=== PATIENT | female | born 1975 | race Caucasian/White ===

== ENCOUNTER 2018-06-25 08:03 | Day surgery (SDC) | payer OTHER ==
[2018-06-25] MEDS ORDERED: DIAZEPAM 5 MG TAB ONE (08:21)
[2018-06-25] MEDS ORDERED: BUPIVACAINE HCL 0.25% MPF 30 ML SOL INFIL ONE (08:32)
[2018-06-25] MEDS ORDERED: TRIAMCINOLONE ACETONIDE 40 MG/ML SUS ONE (08:32)
[2018-06-25] MEDS ORDERED: ONDANSETRON 4 MG ODT ONE (08:46)
[2018-06-25 08:56] VITALS: PULSE 77; RESP 18; TEMP 97.8; O2SAT 99
[2018-06-25 09:03] VITALS: BP 134/88
== END 2018-06-25 09:20 | disposition home or self-care (01) ==
LOC: SURG 08:03
PROVIDERS: ATTEND Nurse Anesthetist, Certified Registered
DX: M12.88 Other specific arthropathies, not elsewhere classified, other specified site (principal)
CPT/HCPCS: A9270-GY; J3300